=== PATIENT | male | born 1955 | race Caucasian/White ===

== ENCOUNTER 2017-01-19 12:58 | Emergency (ER) | payer MEDICARE, OTHER ==
[~2017-01-19] VITALS: Ht 182.9 cm; Wt 122.7 kg
[~2017-01-19 12:58] MED LIST: BUDE6HFA; FLUT16SP17; LASIX; OMEG1CAP2 PO; PHEN100C PO; PRED20TA PO; SIMV20TA PO; TOPI50TA16 PO; UNKNOWN MEDS; [UNRECOGNIZED DRUG - CODE] PO
[2017-01-19 13:32] VITALS: Ht 182.9 cm; Wt 122.7 kg
--- NOTE | 2017-01-19 13:33 | ERA ---
ER Documentation Chief Complaint Date/Time DATE: 01/19/17 TIME: 13:33 Chief Complaint Fall HPI The patient is 61-year-old male, presenting to the ER because of a ground-level fall 3 days ago, complains of mild santillan, left shoulder pain, left elbow pain, minimal left-sided abdominal pain. He denies chest pain, dyspnea, nausea, vomiting with dysuria, diarrhea. He smokes socially, denies drinking Past medical history: Diabetes mellitus, history of CHF, hypertension, CAD, history of CVA, cirrhosis Past medical history: Stent PCI, left wrist ROS All systems reviewed and are negative except as per history of present illness. Medications Home Meds Active Scripts Ibuprofen* (Motrin*) 600 Mg Tab, 600 MG PO Q6, #20 TAB Prov:GARCÍA MOCK MD 01/19/17 Reported Medications Ravenel-3 Acid Ethyl Esters (Lovaza) 1 G Capsule, 1 G PO DAILY 09/23/12 Fluticasone Propionate* (Fluticasone Propionate* Nasal) 16 Gm [place].susp, 1 SPRAY PRN 02/02/12 Phenytoin* Sodium Extended (Dilantin*) 100 Mg Capsule, 100 MG PO QID 02/02/12 Prednisone (Prednisone) 20 Mg Tablet, 20 MG PO DAILY 02/02/12 Topiramate (Topamax) 50 Mg Tablet, 50 MG PO DAILY 02/02/12 Lansoprazole (Prevacid IV) 30 Mg Soln, 30 MG PO DAILY 02/02/12 Simvastatin* (Zocor*) 20 Mg Tablet, 20 MG PO DAILY 02/02/12 Budesonide-Formoterol Fumarate* (Symbicort*) 6 Gm Hfa.aer.ad, 2 PRN 02/02/12 [Unknown Meds] No Conflict Check 10/28/10 [Lasix] No Conflict Check 10/28/10 Allergies Allergies: Coded Allergies: No Known Drug Allergies (Verified Allergy, Mild, 10/29/10) PMhx/Soc History of Surgery: Yes (HAND) Anesthesia Reaction: No Hx Neurological Disorder: No Hx Respiratory Disorders: No Hx Cardiac Disorders: No Hx Psychiatric Problems: No Hx Miscellaneous Medical Probl: Yes (DM, ARTHRITIS, CHRONIC BACK PAIN) Hx Alcohol Use: No Hx Substance Use: No Hx Tobacco Use: No Physical Exam Vitals Vital Signs Date Time Temp Pulse Resp B/P Pulse Ox O2 Delivery O2 Flow Rate FiO2 01/19/17 17:30 98.1 81 18 125/75 99 01/19/17 13:32 98.5 92 18 140/70 98 Physical Exam Const: No acute distress. Head: Atraumatic. Eyes: Normal Conjunctiva. ENT: Normal External Ears, Nose and Mouth. Neck: Full range of motion. No meningismus. Resp: Clear to auscultation bilaterally. Cardio: Regular rate and rhythm. Abd: Soft, non distended, normal bowel sounds, non tender. Skin: No petechiae or rashes. Back: No midline or flank tenderness. Ext: Left shoulder and left elbow tenderness with mild restricted range of motion Neur: Awake and alert. No focal deficit Psych: Normal Mood and Affect. Result Diagram: 01/19/17 1415 01/19/17 1415 Results 24 hrs Laboratory Tests Test 01/19/17 14:15 01/19/17 14:56 01/19/17 17:25 White Blood Count 2.810^3/ul Red Blood Count 4.2110^6/ul Hemoglobin 13.1g/dl Hematocrit 38.6% Mean Corpuscular Volume 91.7fl Mean Corpuscular Hemoglobin 31.1pg Mean Corpuscular Hemoglobin Concent 33.9g/dl Red Cell Distribution Width 14.0% Platelet Count 6610^3/UL Mean Platelet Volume 11.8fl Neutrophils % % Segmented Neutrophils % (Manual) 44% Lymphocytes % % Lymphocytes % (Manual) 43% Monocytes % % Monocytes % (Manual) 9% Eosinophils % % Eosinophils % (Manual) 4% Basophils % % Nucleated Red Blood Cells % 0.0/100WBC Neutrophils # (Manual) 10^3/ul Absolute Lymphocytes (Manual) 1.210^3/ul Lymphocytes # 1.210^3/ul Monocytes # 0.310^3/ul Absolute Monocytes (Manual) 0.210^3/ul Eosinophils # 0.110^3/ul Basophils # 10^3/ul Nucleated Red Blood Cells # 10^3/ul Platelet Estimate DECREASED Anisocytosis OCCASIONAL Macrocytosis OCCASIONAL Sodium Level 141mmol/L Potassium Level 4.0mmol/L Chloride Level 103mmol/L Carbon Dioxide Level 27mmol/L Anion Gap 15 Blood Urea Nitrogen 11mg/dl Creatinine 0.68mg/dl Glucose Level 118mg/dl Bedside Glucose 135mg/dL 130mg/dL Calcium Level 8.3mg/dl Total Bilirubin 0.1mg/dl Direct Bilirubin 0.00mg/dl Indirect Bilirubin 0.1mg/dl Aspartate Amino Transf (AST/SGOT) 193IU/L Alanine Aminotransferase (ALT/SGPT) 209IU/L Alkaline Phosphatase 90IU/L Total Protein 7.0g/dl Albumin 3.4g/dl Globulin 3.60g/dl Albumin/Globulin Ratio 0.94 Lipase 152U/L Bedside Urine pH (LAB) 5.5 Bedside Urine Protein (LAB) 1+ Bedside Urine Glucose (UA) Negative Bedside Urine Ketones (LAB) Negative Bedside Urine Blood Negative Bedside Urine Nitrite (LAB) Negative Bedside Urine Leukocyte Esterase (L Negative Procedures/MDM [place] [id number] Radiology Main Line: [phone] DIAGNOSTIC IMAGING REPORT Patient: EMY GORMAN : 1955 Age: 61 Sex: M MR #: [id number] DOS: 01/19/17 1342 Ordering MD: GARCÍA MOCK MD Location: [facility] Room/Bed: PROCEDURE: XR Shoulder. CLINICAL INDICATION: Left shoulder pain after fall TECHNIQUE: Two views of the right shoulder are available for review. COMPARISON: None available FINDINGS: There is normal mineralization and alignment of the bones of the right shoulder. No acute fracture or dislocation is identified. The glenohumeral joint is within normal limits. There are mild degenerative changes of the left acromioclavicular joint. The visualized portions of the right chest wall are grossly unremarkable. The soft tissues are within normal limits. IMPRESSION: 1. No evidence of acute fracture or dislocation. 2. Mild degenerative changes of the left acromioclavicular joint. . RPTAT: KK .Negro Slater MD, Date Time Electronically viewed and signed by .Negro Slater MD, MD on 2016 14:46 .B/ CC: GARCÍA MOCK MD [place] [id number] Radiology Main Line: [phone] DIAGNOSTIC IMAGING REPORT Patient: EMY GORMAN : 1955 Age: 61 Sex: M MR #: [id number] DOS: 01/19/17 1342 Ordering MD: GARCÍA MOCK MD Location: E/R Room/Bed: AMENDMENT: 01/19/2017 5:46:37 PM Devan Costa M.D Lateral view was obtained. No fracture identified. No joint effusion is seen. PROCEDURE: Left elbow series. CLINICAL INDICATION: Left elbow pain after fall TECHNIQUE: Three views of the left elbow are available for review COMPARISON: None available FINDINGS: Study is limited as the lateral view is obliqued. There is normal mineralization and alignment of the bones of the elbow. Evaluation for joint effusion is limited due to lack of a true lateral view. There is subtle irregularity of the radial head which is likely related to a small osteophyte though a minimally displaced fracture could also be present. The surrounding soft tissues are grossly unremarkable. IMPRESSION: 1. Limited study due to lack of a true lateral view and thus poor evaluation for joint effusion. 2. Subtle irregularity of the radial head is likely related to small osteophyte rather than minimally displaced fracture. Consider repeat dedicated lateral view to exclude effusion and fracture. RPTAT: KK .Devan Costa MD, MD Date Time Electronically viewed and signed by .Devan Costa MD, on 01/19/2017 17: 46 .T/ CC: GARCÍA MOCK MD [place] [id number] Radiology Main Line: [phone] DIAGNOSTIC IMAGING REPORT Patient: EMY GORMAN : 1955 Age: 61 Sex: M MR #: [id number] DOS: 01/19/17 1342 Ordering MD: GARCÍA MOCK MD Location: [facility]TE Room/Bed: PROCEDURE: Chest Radiograph. CLINICAL INDICATION: Chest pain after fall TECHNIQUE: Single frontal chest radiograph. COMPARISON: None available FINDINGS: The patient is rotated. Heart size is poorly evaluated. No infiltrate or effusion is seen. The bones are intact. IMPRESSION: 1. No evidence of acute cardiopulmonary disease. RPTAT: KK .Negro Slater MD, Date Time Electronically viewed and signed by .Negro Slater MD, on 2016 14:44 .B/ CC: GARCÍA MOCK MD [place] [id number] Radiology Main Line: [phone] DIAGNOSTIC IMAGING REPORT Patient: EMY GORMAN : 1955 Age: 61 Sex: M MR #: [id number] DOS: 01/19/17 1342 Ordering MD: GARCÍA MOCK MD Location: E/R Room/Bed: PROCEDURE: CT cervical spine without contrast. CLINICAL INDICATION: Fall, neck pain TECHNIQUE: CT of the cervical spine without contrast was performed on a multidetector CT scanner, with multiplanar reformats. One or more of the following dose reduction techniques were used: Automated exposure control, adjustment in mA and / or kV according to patient size, use of iterative reconstructive technique. CTDIvol = 22 mGy and DLP = 444 mGy-cm. COMPARISON: None available. FINDINGS: No fracture or dislocation is identified. There is preservation of the lordosis of the cervical spine. Alignment is intact. The vertebral bodies are maintained in height. There are anterior osteophytes at C4-5 through the C6-7 with mild to moderate disk space narrowing at these levels. Noted is a developmental defect of the posterior arch of C1 and a C2-3: There is mild posterior disk osteophyte and facet arthropathy on the left without central canal stenosis or foraminal narrowing identified. C3-4: There is mild posterior disk osteophyte without central canal stenosis identified. There are uncovertebral osteophytes and facet arthropathy with moderate right foraminal narrowing. C4-5: There is a posterior disk/osteophyte without definite central canal stenosis identified. There are uncovertebral osteophytes and facet arthropathy with moderate right, mild-moderate left foraminal narrowing. C5-6: There is a posterior disk/osteophyte with mild central canal stenosis identified. There are uncovertebral osteophytes and facet arthropathy with mild right, mild-moderate left foraminal narrowing. C6-7: There is a posterior disk/osteophyte with mild central canal stenosis identified. There are uncovertebral osteophytes and facet arthropathy with moderate left foraminal narrowing. C7-T1: There is facet arthropathy. No central canal stenosis or foraminal narrowing is identified. IMPRESSION: 1. No fracture/dislocation identified. 2. Cervical spondylosis/degenerative enthesopathy with mild central canal stenosis identified at C5-6 and C6-7, and multilevel foraminal narrowing detailed above. RPTAT: VV .Pedro Stephens MD, MD Date Time Electronically viewed and signed by .Pedro Stephens MD, MD on 01/19/2017 17:16 .O/ CC: GARCÍA MOCK MD [place] [id number] Radiology Main Line: [phone] DIAGNOSTIC IMAGING REPORT Patient: EMY GORMAN : 1955 Age: 61 Sex: M MR #: [id number] DOS: 01/19/17 1342 Ordering MD: GARCÍA MOCK MD Location: E/R Room/Bed: PROCEDURE: CT brain without contrast CLINICAL INDICATION: Fall. Head pain TECHNIQUE: CT of the brain without contrast performed on a multidetector CT scanner, with multiplanar reformats. One or more of the following dose reduction techniques were used: Automated exposure control, adjustment in mA and / or kV according to patient size, use of iterative reconstructive technique. CTDIvol = 45 mGy; DLP = 720 mGy-cm. COMPARISON: None available FINDINGS: No acute intracranial hemorrhage is identified. No extra-axial fluid collection is seen. There is no mass effect. No midline shift is identified. The ventricles and sulci are within normal limits for size and configuration. The density of the brain appears unremarkable. Sánchez-white differentiation is preserved. Calvarium and skull base are intact. Mastoid air cells and imaged paranasal sinuses grossly clear. IMPRESSION: No evidence of acute intracranial pathology. RPTAT: VV .Pedro Stephens MD, MD Date Time Electronically viewed and signed by .Pedro Stephens MD, MD on 01/19/2017 17:09 .O/ CC: GARCÍA MOCK MD MEDICAL MAKING DECISION: The patient is a 61-year-old male, presenting to the ER because of acute left shoulder pain, acute left elbow pain, acute neck pain. He remains well emergency department and is stable for outpatient follow-up The differential diagnoses considered include but are not limited to fracture, contusion, sprain, internal derangement Departure Diagnosis: Primary Impression: Left shoulder pain Additional Impressions: Left elbow pain Neck pain Pancytopenia Transaminitis Condition: Good Comments He was discharged with Motrin and sling I discussed the findings with the patient. I advised the patient to follow-up with the primary physician in about 1-2 days, sooner if needed and return if any concern. He was advised that he may need MRI for further evaluation if the pain is persistent GARCÍA MOCK MD Jan 19, 2017 13:33
--- NOTE | 2017-01-19 14:44 | RADRPT ---
PROCEDURE: Chest Radiograph. CLINICAL INDICATION: Chest pain after fall TECHNIQUE: Single frontal chest radiograph. COMPARISON: None available FINDINGS: The patient is rotated. Heart size is poorly evaluated. No infiltrate or effusion is seen. The bones are intact. IMPRESSION: 1. No evidence of acute cardiopulmonary disease. RPTAT: KK .Negro Slater MD, MD Date Time Electronically viewed and signed by .Negro Slater MD, on 01/19/2017 14:44 .B/
[2017-01-19 14:46] LABS: ABNORMAL IP MESSAGE 1; HEMATOCRIT 38.6 % (42.0-52.0); HEMOGLOBIN 13.1 g/dl (14.0-18.0); MEAN CORPUSCULAR HEMOGLOBIN 31.1 pg (29.0-33.0); MEAN CORPUSCULAR HGB CONC 33.9 g/dl (32.0-37.0); MEAN CORPUSCULAR VOLUME 91.7 fl (82.0-101.0); MEAN PLATELET VOLUME 11.8 fl (7.4-10.4); PLATELET COUNT 66 10^3/UL (140-415); POSITIVE DIFF @See below; RED BLOOD COUNT 4.21 10^6/ul (4.70-6.10); WHITE BLOOD COUNT 2.8 10^3/ul (4.8-10.8)
--- NOTE | 2017-01-19 14:46 | RADRPT ---
AMENDMENT: 01/19/2017 5:46:37 PM Devan Costa M.D Lateral view was obtained. No fracture identified. No joint effusion is seen. PROCEDURE: Left elbow series. CLINICAL INDICATION: Left elbow pain after fall TECHNIQUE: Three views of the left elbow are available for review COMPARISON: None available FINDINGS: Study is limited as the lateral view is obliqued. There is normal mineralization and alignment of th e bones of the elbow. Evaluation for joint effusion is limited due to lack of a true lateral view. There is subtle irregularity of the radial head which is likely related to a small osteophyte though a minimally displaced fracture could also be present. The surrounding soft tissues are grossly unr emarkable. IMPRESSION: 1. Limited study due to lack of a true lateral view and thus poor evaluation for joint effusion. 2. Subtle irregularity of the radial head is likely related to small osteophyte rather than minimal ly displaced fracture. Consider repeat dedicated lateral view to exclude effusion and fracture. RPTAT: KK .Devan Costa MD, MD Date Time Electronically viewed and signed by .Devan Costa MD, on 01/19/2017 17:46 .T/
--- NOTE | 2017-01-19 14:47 | RADRPT ---
PROCEDURE: XR Shoulder. CLINICAL INDICATION: Left shoulder pain after fall TECHNIQUE: Two views of the right shoulder are available for review. COMPARISON: None available FINDINGS: There is normal mineralization and alignment of the bones of the right shoulder. No acute fracture or dislocation is identified. The glenohumeral joint is within normal limits. There are mild degener ative changes of the left acromioclavicular joint. The visualized portions of the right chest wall are grossly unremarkable. The soft tissues are within normal limits. IMPRESSION: 1. No evidence of acute fracture or dislocation. 2. Mild degenerative changes of the left acromioclavicular joint. . RPTAT: KK .Negro Slater MD, MD Date Time Electronically viewed and signed by .Negro Slater MD, MD on 01/19/2017 14:46 .B/
[2017-01-19 14:50] LABS: URINE BLOOD (Dip) POC Negative (NEGATIVE)
[2017-01-19 14:53] LABS: BILIRUBIN,INDIRECT 0.1 mg/dl (0-1.1); BILIRUBIN,TOTAL 0.1 mg/dl (0.2-1.3); CALCIUM 8.3 mg/dl (8.4-10.2); CREATININE 0.68 mg/dl (0.61-1.24)
[2017-01-19 14:55] LABS: ALBUMIN 3.4 g/dl (3.3-4.9); ALBUMIN/GLOBULIN RATIO 0.94
[2017-01-19 16:44] LABS: EOSINOPHILS # 0.1 10^3/ul (0.0-0.5); EOSINOPHILS % (M) 4 % (0.0-7.0); LYMPHOCYTES # 1.2 10^3/ul (0.8-2.9); MONOCYTE # 0.3 10^3/ul (0.3-0.9); MONOCYTES % (M) 9 % (0-11)
[2017-01-19 16:45] LABS: ANISOCYTOSIS OCCASIONAL (0-0)
[2017-01-19 16:47] LABS: PLATELET ESTIMATE DECREASED
--- NOTE | 2017-01-19 17:10 | RADRPT ---
PROCEDURE: CT brain without contrast CLINICAL INDICATION: Fall. Head pain TECHNIQUE: CT of the brain without contrast performed on a multidetector CT scanner, with multiplan ar reformats. One or more of the following dose reduction techniques were used: Automated exposure control, adjustment in mA and / or kV according to patient size, use of iterative reconstructive navid hnique. CTDIvol = 45 mGy; DLP = 720 mGy-cm. COMPARISON: None available FINDINGS: No acute intracranial hemorrhage is identified. No extra-axial fluid collection is seen. There is no mass effect. No midline shift is identified. The ventricles and sulci are within normal limits for size and configuration. The density of the brain appears unremarkable. Sánchez-white differentiation is preserved. Calvarium and skull base are intact. Mastoid air cells and imaged paranasal sinuses grossly clear. IMPRESSION: No evidence of acute intracranial pathology. RPTAT: VV .Pedro Stephens MD, MD Date Time Electronically viewed and signed by .Pedro Stephens MD, MD on 01/19/2017 17:09 .O/
--- NOTE | 2017-01-19 17:16 | RADRPT ---
PROCEDURE: CT cervical spine without contrast. CLINICAL INDICATION: Fall, neck pain TECHNIQUE: CT of the cervical spine without contrast was performed on a multidetector CT scanner, w ith multiplanar reformats. One or more of the following dose reduction techniques were used: Automa avery exposure control, adjustment in mA and / or kV according to patient size, use of iterative recon structive technique. CTDIvol = 22 mGy and DLP = 444 mGy-cm. COMPARISON: None available. FINDINGS: No fracture or dislocation is identified. There is preservation of the lordosis of the cervical spi ne. Alignment is intact. The vertebral bodies are maintained in height. There are anterior osteo phytes at C4-5 through the C6-7 with mild to moderate disk space narrowing at these levels. Noted i s a developmental defect of the posterior arch of C1 and a C2-3: There is mild posterior disk osteophyte and facet arthropathy on the left without central jeffry l stenosis or foraminal narrowing identified. C3-4: There is mild posterior disk osteophyte without central canal stenosis identified. There are uncovertebral osteophytes and facet arthropathy with moderate right foraminal narrowing. C4-5: There is a posterior disk/osteophyte without definite central canal stenosis identified. Ther e are uncovertebral osteophytes and facet arthropathy with moderate right, mild-moderate left forami nal narrowing. C5-6: There is a posterior disk/osteophyte with mild central canal stenosis identified. There are u ncovertebral osteophytes and facet arthropathy with mild right, mild-moderate left foraminal narrowi ng. C6-7: There is a posterior disk/osteophyte with mild central canal stenosis identified. There are uncovertebral osteophytes and facet arthropathy with moderate left foraminal narrowing. C7-T1: There is facet arthropathy. No central canal stenosis or foraminal narrowing is identified. IMPRESSION: 1. No fracture/dislocation identified. 2. Cervical spondylosis/degenerative enthesopathy with mild central canal stenosis identified at C5 -6 and C6-7, and multilevel foraminal narrowing detailed above. RPTAT: VV .Pedro Stephens MD, MD Date Time Electronically viewed and signed by .Pedro Stephens MD, on 01/19/2017 17:16 .O/
[2017-01-19 17:30] VITALS: BP 125/75; PULSE 81; RESP 18; TEMP 98.1
[2017-01-19] MEDS ORDERED: IBUP-1542 PO (18:20)
== END 2017-01-19 19:23 | disposition left against medical advice (07) ==
LOC: E/R 12:58
DX: S49.92XA Unspecified injury of left shoulder and upper arm, initial encounter (principal); S59.902A Unspecified injury of left elbow, initial encounter; S19.9XXA Unspecified injury of neck, initial encounter; D61.818 Other pancytopenia; R74.0 Nonspecific elevation of levels of transaminase and lactic acid dehydrogenase [LDH]; E11.9 Type 2 diabetes mellitus without complications; I50.9 Heart failure, unspecified; I10 Essential (primary) hypertension; I25.10 Atherosclerotic heart disease of native coronary artery without angina pectoris; R51 Headache; W18.39XA Other fall on same level, initial encounter; Y92.9 Unspecified place or not applicable
CPT/HCPCS: 36415; 70450; 71010; 72125; 73030; 80053; 81003; 82962; 83690; 85025

== ENCOUNTER 2017-02-05 20:33 | Emergency (ER) | payer MEDICARE, OTHER ==
[~2017-02-05] VITALS: Wt 119.0 kg
[~2017-02-05 20:33] MED LIST changes: +IBUP-1542 PO
[2017-02-05] MEDS ORDERED: ONDANSETRON (ODT) 4 MG TAB ODT STA (21:00)
[2017-02-05] MEDS ORDERED: HYDROCODONE/APAP (10/325) TAB PO ONE (21:00)
[2017-02-05] MEDS ORDERED: HYDR-902 PO (21:02)
--- NOTE | 2017-02-05 21:06 | ERD ---
ER Documentation Chief Complaint Date/Time DATE: 02/05/17 TIME: 21:04 Chief Complaint Chronic leg pain HPI Is a 61-year-old male who presents the emergency room with shoulder pain. At triage he described leg pain. The patient describes chronic shoulder pain. He is somewhat difficult to understand but states that he has had chronic pain. He ultimately reveals that he ran out of his [place]. He states that he cannot get his [place] until the 15th of the month. The shoulder pain is chronic and unchanged and localized to the anterior portion of the shoulder that is worse with movement. It is moderate and throbbing. He states that his primary care physician is arranging an MRI. No chest pain or shortness of breath. ROS All systems reviewed and are negative except as per history of present illness. Medications Home Meds Active Scripts Hydrocodone/Acetaminophen ([place] 10-325 Tablet) 1 Each Tablet, 1 TAB PO Q6H Y for PAIN, #8 TAB Prov:LILIBETH DIAS MD 02/05/17 Ibuprofen* (Motrin*) 600 Mg Tab, 600 MG PO Q6, #20 TAB Prov:GARCÍA MOCK MD 01/19/17 Reported Medications [place]-3 Acid Ethyl Esters ([place]) 1 G Capsule, 1 G PO DAILY 09/23/12 Fluticasone Propionate* (Fluticasone Propionate* Nasal) 16 Gm [place].susp, 1 SPRAY PRN 02/02/12 Phenytoin* Sodium Extended (Dilantin*) 100 Mg Capsule, 100 MG PO QID 02/02/12 Prednisone (Prednisone) 20 Mg Tablet, 20 MG PO DAILY 02/02/12 Topiramate (Topamax) 50 Mg Tablet, 50 MG PO DAILY 02/02/12 Lansoprazole (Prevacid IV) 30 Mg Soln, 30 MG PO DAILY 02/02/12 Simvastatin* (Zocor*) 20 Mg Tablet, 20 MG PO DAILY 02/02/12 Budesonide-Formoterol Fumarate* (Symbicort*) 6 Gm Hfa.aer.ad, 2 PRN 02/02/12 [Unknown Meds] No Conflict Check 10/28/10 [Lasix] No Conflict Check 10/28/10 Allergies Allergies: Coded Allergies: No Known Drug Allergies (Verified Allergy, Mild, 10/29/10) PMhx/Soc History of Surgery: Yes (HAND) Anesthesia Reaction: No Hx Neurological Disorder: No Hx Respiratory Disorders: No Hx Cardiac Disorders: No Hx Psychiatric Problems: No Hx Miscellaneous Medical Probl: Yes (DM, ARTHRITIS, CHRONIC BACK PAIN, DIALYSIS ) Hx Alcohol Use: No Hx Substance Use: No Hx Tobacco Use: No FmHx Family History: No diabetes Physical Exam Vitals Vital Signs Date Time Temp Pulse Resp B/P Pulse Ox O2 Delivery O2 Flow Rate FiO2 02/05/17 20:40 97.6 91 20 127/76 98 Physical Exam General: Well developed, well nourished, no acute distress Head: Normocephalic, atraumatic. Eyes: EOM intact ENT: Moist mucous membranes Neck: Full ROM Respiratory: No respiratory distress Cardiovascular: Good capillary refil Abdominal: Nondistended : Deferred MSK: No edema, no unilateral swelling, 5/5 strength left shoulder with full active and passive range of motion without deformities. 2+ radial ulnar pulses. No erythema warmth or tenderness. Neurologic: Alert and oriented, moving all extremities, normal speech, steady gait With a cane but appears to be baseline Skin: No rash Psych: Normal mood Results 24 hrs Current Medications Medications (Trade) Dose Ordered Sig/Fred Route PRN Reason Start Time Stop Time Status Last Admin Dose Admin Acetaminophen/ Hydrocodone Bitart ([place] (10/325)) 1 tab ONCE ONCE PO 02/05/17 21:00 02/05/17 21:01 DC Ondansetron HCl (Zofran Odt) 4 mg ONCE STAT ODT 02/05/17 21:00 02/05/17 21:01 DC Procedures/MDM The patient presents for narcotic refill. I explained to the patient that we do not usually do this in the emergency room. I will give him a tablets to get him to his next provider. The patient's shoulder exam is consistent with likely rotator cuff injury. This is chronic. No signs or symptoms concerning for cardiac etiology or vascular process. The patient was given oral [place] per our pain protocol and will be discharged. We discussed follow up with the patient's primary care doctor within 24 to 48 hours as needed. We also discussed return to the emergency room for worsening symptoms or worsening condition. Outpatient referral: [None required] Discharge Medications: [place] total of 8 tablets Departure Diagnosis: Primary Impression: Shoulder pain, left Chronicity: chronic Qualified Code: M25.512 - Chronic left shoulder pain Additional Impression: Chronic pain Chronic pain type: other chronic pain Qualified Code: G89.29 - Other chronic pain Condition: Stable Patient Instructions: Shoulder Pain (Uncertain Cause) Referrals: YUSUF DURAN MD [facility] YOU HAVE RECEIVED A MEDICAL SCREENING EXAM AND THE RESULTS INDICATE THAT YOU DO NOT HAVE A CONDITION THAT REQUIRES URGENT TREATMENT IN THE EMERGENCY DEPARTMENT. FURTHER EVALUATION AND TREATMENT OF YOUR CONDITION CAN WAIT UNTIL YOU ARE SEEN IN YOUR DOCTORS OFFICE WITHIN THE NEXT 1-2 DAYS. IT IS YOUR RESPONSIBILITY TO MAKE AN APPOINTMENT FOR FOLOW-UP CARE. IF YOU HAVE A PRIMARY DOCTOR --you should call your primary doctor and schedule an appointment IF YOU DO NOT HAVE A PRIMARY DOCTOR YOU CAN CALL OUR PHYSICIAN REFERRAL HOTLINE AT IF YOU CAN NOT AFFORD TO SEE A PHYSICIAN YOU CAN CHOSE FROM THE FOLLOWING [facility] [email or web address] [facility] [email or web address] [facility]. [facility] [address] [facility] [address] [facility] [address] [facility]. [facility] [address] [facility]. [facility] YOU HAVE RECEIVED A MEDICAL SCREENING EXAM AND THE RESULTS INDICATE THAT YOU DO NOT HAVE A CONDITION THAT REQUIRES URGENT TREATMENT IN THE EMERGENCY DEPARTMENT. FURTHER EVALUATION AND TREATMENT OF YOUR CONDITION CAN WAIT UNTIL YOU ARE SEEN IN YOUR DOCTORS OFFICE WITHIN THE NEXT 1-2 DAYS. IT IS YOUR RESPONSIBILITY TO MAKE AN APPOINTMENT FOR FOLOW-UP CARE. IF YOU HAVE A PRIMARY DOCTOR --you should call your primary doctor and schedule and appointment IF YOU DO NOT HAVE A PRIMARY DOCTOR YOU CAN CALL OUR PHYSICIAN REFERRAL HOTLINE AT . IF YOU CAN NOT AFFORD TO SEE A PHYSICIAN YOU CAN CHOSE FROM THE FOLLOWING COUNTS INCLUDE 234 BEDS AT THE [facility] INSTITUTIONS: [facility] [address] [place] [address] [facility] [address] [place] [address] [facility] + [address] [place] [address] Additional Instructions: Follow-up with your primary care physician, outpatient MRI imaging may be necessary for her chronic shoulder pain. A single provider needs to be giving you narcotic medications. LILIBETH DIAS MD Feb 05, 2017 21:06
[2017-02-05 21:16] VITALS: BP 128/76; PULSE 68; RESP 20
== END 2017-02-05 21:16 | disposition home or self-care (01) ==
LOC: E/R 20:33
DX: M25.512 Pain in left shoulder (principal); E11.9 Type 2 diabetes mellitus without complications; G89.29 Other chronic pain; Z99.2 Dependence on renal dialysis
CPT/HCPCS: 99283

== ENCOUNTER 2018-11-03 12:38 | Emergency (ER) | payer MEDICARE, OTHER ==
[~2018-11-03] VITALS: Wt 105.0 kg
[~2018-11-03 12:38] MED LIST changes: +HYDR-3980 PO
[2018-11-03] MEDS ORDERED: ONDANSETRON 4 MG INJ IV STA ×2 (13:29→16:57)
[2018-11-03] MEDS ORDERED: SOD CHLORIDE 0.9% 1,000 ML IV STA (13:29)
[2018-11-03] MEDS ORDERED: morphine 4 MG/ML VIAL IV STA (13:29)
--- NOTE | 2018-11-03 13:55 | ERD ---
ER Documentation Chief Complaint Chief Complaint ALEFT SIDED ABD PAIN WITH N/V X 2 WEEKS HPI This is 63-year-old male with a past medical history of type 2 diabetes mellitus and liver cirrhosis. Liver cirrhosis is due to history of alcohol abuse but the patient states he had no alcohol for several years. The patient indicates for the past 2 months he has been having intermittent pain in the left lower quadrant. Indicates for the past 2 weeks it is significantly worsened. Yesterday he had 2 episodes of nonbloody nonbilious emesis. Decreased appetite as he stated the pain was 10 out of 10 in intensity. The patient states that the pain does not radiate to the back. He has had no frequency urgency or dysuria. He denies any hemoptysis hematemesis or melanotic stools. The patient states that the pain is aggravated when he rides his bicycle which he states he started to do over the past several weeks in order to increase his exercise. ROS All systems reviewed and are negative except as per history of present illness. Medications Home Meds Active Scripts Ibuprofen* (Motrin*) 800 Mg Tab, 800 MG PO Q6H PRN for PAIN AND OR ELEVATED TEMP, #30 TAB Prov:ELE ALEMAN MD 11/03/18 Hydrocodone/Acetaminophen ([place] 5-325 Tablet) 1 Each Tablet, 1 TAB PO Q6H PRN for PAIN, #20 TAB Prov:ELE ALEMAN MD 11/03/18 Reported Medications Carisoprodol* (Carisoprodol*) 350 Mg Tablet, 350 MG PO BID, TAB 11/03/18 Omeprazole* (Omeprazole*) 40 Mg Capsule.dr, 1 CAP ORAL DAILY 11/03/18 Diclofenac Sodium* (Voltaren* Gel) 1% -100 Gm Gel, 2 GM TOP QID, #1 TUB 11/03/18 Sertraline Hcl* (Sertraline Hcl*) 50 Mg Tablet, 1 TAB ORAL QHS 11/03/18 Atorvastatin (Atorvastatin) 10 Mg Tablet, 1 TAB ORAL QHS 11/03/18 Albuterol Sulfate* (Ventolin HFA*) 18 Gm Hfa.aer.ad, 1 PUFF IN Q4H WHILE AWAKE PRN for SHORTNESS OF BREATH 11/03/18 Metformin* (Glucophage*) 500 Mg Tab, 1 TAB ORAL BID 11/03/18 Clonazepam* (Clonazepam*) 2 Mg Tablet, 1 TAB ORAL BID 11/03/18 [place]-3 Acid Ethyl Esters (Lovaza) 1 G Capsule, 1 G PO DAILY 09/23/12 Fluticasone Propionate* (Fluticasone Propionate* Nasal) 16 Gm [place].susp, 1 SPRAY PRN 02/02/12 Phenytoin* Sodium Extended (Dilantin*) 100 Mg Capsule, 100 MG PO QID 02/02/12 Prednisone (Prednisone) 20 Mg Tablet, 20 MG PO DAILY 02/02/12 Topiramate (Topamax) 50 Mg Tablet, 50 MG PO DAILY 02/02/12 Simvastatin* (Zocor*) 20 Mg Tablet, 20 MG PO DAILY 02/02/12 Budesonide-Formoterol Fumarate* (Symbicort*) 6 Gm Hfa.aer.ad, 2 PRN 02/02/12 Discontinued Reported Medications Lansoprazole (Prevacid IV) 30 Mg Soln, 30 MG PO DAILY 02/02/12 [Unknown Meds] No Conflict Check 10/28/10 [Lasix] No Conflict Check 10/28/10 Discontinued Scripts Hydrocodone/Acetaminophen ([place] 10-325 Tablet) 1 Each Tablet, 1 TAB PO Q6H PRN for PAIN, #8 TAB Prov:LILIBETH DIAS MD 02/05/17 Ibuprofen* (Motrin*) 600 Mg Tab, 600 MG PO Q6, #20 TAB Prov:GARCÍA MOCK MD 01/19/17 Allergies Allergies: Coded Allergies: No Known Drug Allergies (Verified Allergy, Mild, 10/29/10) PMhx/Soc History of Surgery: Yes (HAND) Anesthesia Reaction: No Hx Neurological Disorder: No Hx Respiratory Disorders: No Hx Cardiac Disorders: No Hx Psychiatric Problems: No Hx Miscellaneous Medical Probl: Yes (DM, ARTHRITIS, CHRONIC BACK PAIN, DIALYSIS ) Hx Alcohol Use: No Hx Substance Use: No Hx Tobacco Use: No Physical Exam Vitals Vital Signs Date Temp Pulse Resp B/P (MAP) Pulse Ox O2 O2 Flow FiO2 Time Delivery Rate 11/03/18 83 16 141/87 98 Room Air 17:08 (105) 11/03/18 83 16 145/84 98 Room Air 14:30 (104) 11/03/18 98.0 98 22 137/73 99 12:49 (94) Physical Exam Constitutional:Well-developed. Well-nourished. HEENT:Normocephalic. Atraumatic.Pupils were equal round reactive to light. Moist mucous membranes.No tonsillar exudates. Neck: No nuchal rigidity. No lymphadenopathy. No posterior cervical spine tenderness or step-offs. Respiratory: Not using accessory muscles of respiration.Lungs were clear to auscultation bilaterally. No rhonchi. No rales. No wheezing. Cardiovascular: Regular rate regular rhythm.No murmurs. No rubs were appreciated.S1, S2 normal. Distal pulses are palpable 2+ bilaterally. GI: Abdomen was soft. Left lower quadrant tenderness non Distended. No pulsatile abdominal masses or bruits. No rebound. No guarding. Bowel sounds were present and normal. Muscle skeletal: Full range of motion of both the upper and lower extremities bilaterally.Normal muscle tone.No assymetrical calf tenderness or swelling. Skin: No petechia, no purpura. No lesions on the palms or the soles of the feet. No maculopapular rash. NEURO: Patient was alert, awake, orientated x3.No facial droop. Gait observed and normal with no ataxia.Speech had regular rate and rhythm. No focal neurological deficits. Result Diagram: 11/03/18 1400 11/03/18 1400 Results 24 hrs Laboratory Tests Test 11/03/18 14:00 White Blood Count 3.5 10^3/ul Red Blood Count 4.57 10^6/ul Hemoglobin 14.1 g/dl Hematocrit 40.5 % Mean Corpuscular Volume 88.6 fl Mean Corpuscular Hemoglobin 30.9 pg Mean Corpuscular Hemoglobin Concent 34.8 g/dl Red Cell Distribution Width 13.2 % Platelet Count 62 10^3/UL Mean Platelet Volume 11.2 fl Immature Granulocytes % 0.300 % Neutrophils % 62.1 % Lymphocytes % 24.5 % Monocytes % 11.4 % Eosinophils % 1.1 % Basophils % 0.6 % Nucleated Red Blood Cells % 0.0 /100WBC Immature Granulocytes # 0.010 10^3/ul Neutrophils # 2.2 10^3/ul Lymphocytes # 0.9 10^3/ul Monocytes # 0.4 10^3/ul Eosinophils # 0.0 10^3/ul Basophils # 0.0 10^3/ul Nucleated Red Blood Cells # 0.0 10^3/ul Prothrombin Time 12.8 Sec Prothrombin Time Ratio 1.0 INR International Normalized Ratio 0.95 Activated Partial Thromboplast Time 28.6 Sec Urine Color YELLOW Urine Clarity CLEAR Urine pH 6.0 Urine Specific [place] 1.025 Urine Ketones NEGATIVE mg/dL Urine Nitrite NEGATIVE mg/dL Urine Bilirubin NEGATIVE mg/dL Urine Urobilinogen NEGATIVE mg/dL Urine Leukocyte Esterase NEGATIVE [place]/ul Urine Hemoglobin NEGATIVE mg/dL Urine Glucose 3+ mg/dL Urine Total Protein NEGATIVE mg/dl Sodium Level 138 mmol/L Potassium Level 4.7 mmol/L Chloride Level 104 mmol/L Carbon Dioxide Level 28 mmol/L Anion Gap 6 Blood Urea Nitrogen 11 mg/dl Creatinine 0.69 mg/dl Est Glomerular Filtrat Rate mL/min > 60 mL/min Glucose Level 292 mg/dl Calcium Level 8.9 mg/dl Total Bilirubin 0.3 mg/dl Direct Bilirubin 0.00 mg/dl Indirect Bilirubin 0.3 mg/dl Aspartate Amino Transf (AST/SGOT) 57 IU/L Alanine Aminotransferase (ALT/SGPT) 59 IU/L Alkaline Phosphatase 99 IU/L Troponin I < 0.012 ng/ml Total Protein 7.0 g/dl Albumin 3.8 g/dl Globulin 3.20 g/dl Albumin/Globulin Ratio 1.18 Amylase Level 74 U/L Lipase 198 U/L Current Medications Medications Dose Sig/Fred Start Time Status Last (Trade) Ordered Route PRN Stop Time Admin Dose Reason Admin Sodium 1,000 ml @ Q1H STAT 11/03/18 DC 11/03/18 Chloride 1,000 mls/hr IV 13:29 11/03/18 14:28 14:28 Morphine 4 mg ONCE STAT 11/03/18 DC 11/03/18 Sulfate IV 13:29 11/03/18 14:27 (morphine) 13:31 Ondansetron 4 mg ONCE STAT 11/03/18 DC 11/03/18 HCl (Zofran IV 13:29 11/03/18 14:27 Inj) 13:31 IV Flush 10 ml STK-MED 11/03/18 DC 11/03/18 (NS 10 ml) ONCE .ROUTE 14:11/03/18 14:53 14:21 Sodium 100 ml @ ud STK-MED 11/03/18 DC 11/03/18 Chloride ONCE .ROUTE 14:11/03/18 14:54 14:21 Iohexol 150 ml STK-MED 11/03/18 DC (Omnipaque ONCE .ROUTE 14:20 11/03/18 300mg/ ml) 14:21 Iodixanol 100 ml STK-MED 11/03/18 DC 11/03/18 (Visipaque ONCE .ROUTE 14:22 11/03/18 14:54 Locm) 14:23 1 mg ONCE STAT 11/03/18 DC 11/03/18 Hydromorphone IV 16:57 11/03/18 17:08 HCl 16:58 (Dilaudid) Ondansetron 4 mg ONCE STAT 11/03/18 DC 11/03/18 HCl (Zofran IV 16:57 11/03/18 17:08 Inj) 16:58 Procedures/MDM This patient presented to the emergency department with abdominal pain and was seen and evaluated by myself. My differential diagnosis included but was not limited to abdominal aortic aneurysm, appendicitis, pancreatitis, perforated peptic ulcer, perforated viscus, Boerhaaves syndrome or visceral pain such as diverticulitis, DKA, esophagitis, hepatitis or bowel obstruction. The patient was placed on a assembly member, continuous pulse oximetry, and IV access was established by nursing staff. The patient received intravenous morphine and Zofran for analgesia control. Due to the location of the patient's abdominal pain I do feel is necessary to obtain a CT scan of the abdomen which was reviewed with the radiologist myself and indicate the followin. Cirrhotic morphology of the liver with evidence of portal hypertension including small recanalized umbilical vein, upper abdominal varices including large para-esophageal varices and splenomegaly. No ascites. 2. Otherwise no mass or acute inflammatory process. The patient had no evidence of sepsis. I did feel this was more muscle skeletal in injury. The patient had hyperglycemia without ketosis. He was given IV f luids to improve his hyperglycemia. Observation Note: Time: 4 hours Family Hx: No Hypertension Evaluation: Multiple exams showed improving symptoms and no evidence of worsening of the symptoms. Departure Diagnosis: Primary Impression: Abdominal muscle strain Encounter type: initial encounter Qualified Codes: S39.011A - Strain of muscle, fascia and tendon of abdomen, initial encounter Condition: Fair ELE ALEMAN MD Nov 03, 2018 13:55
[2018-11-03] MEDS ORDERED: ALBU18HF IN (14:06)
[2018-11-03] MEDS ORDERED: CLON2TAB12 ORAL (14:06)
[2018-11-03] MEDS ORDERED: METF-849 ORAL (14:06)
[2018-11-03] MEDS ORDERED: ATOR10TA65 ORAL (14:06)
[2018-11-03] MEDS ORDERED: CARI350T29 PO (14:09)
[2018-11-03] MEDS ORDERED: OMEP40CA6 ORAL (14:09)
[2018-11-03] MEDS ORDERED: DICL100G37 TOP (14:09)
[2018-11-03] MEDS ORDERED: SERT50TA6 ORAL (14:09)
[2018-11-03] MEDS ORDERED: IOHEXOL 300MG/ML 150 ML BTL ONE (14:20)
[2018-11-03] MEDS ORDERED: SOD CHLORIDE 0.9% 100 ML ONE (14:20)
[2018-11-03] MEDS ORDERED: IODIXANOL LOCM 100 ML BTL ONE (14:22)
[2018-11-03] MEDS ORDERED: HYDROmorphONE 1 MG/ML SYG IV STA (16:57)
[2018-11-03] MEDS ORDERED: HYDR-4011 PO (18:01)
[2018-11-03] MEDS ORDERED: IBUP800T48 PO (18:01)
[2018-11-03 19:06] VITALS: BP 149/86; PULSE 78; RESP 16
== END 2018-11-03 19:19 | disposition home or self-care (01) ==
LOC: E/R 12:38
DX: S39.011A Strain of muscle, fascia and tendon of abdomen, initial encounter (principal); E11.9 Type 2 diabetes mellitus without complications; R10.32 Left lower quadrant pain; X58.XXXA Exposure to other specified factors, initial encounter; Y92.9 Unspecified place or not applicable; Z79.84 Long term (current) use of oral hypoglycemic drugs
CPT/HCPCS: 36415; 74177; 80053; 81003; 82150; 83690; 84484; 85025; 85610; 85730; 87086; 96374; 96375; 96376; 99285; J1170; J2270; J2405; J7030; Q9967